=== PATIENT | male | born 1955 | race Two or more races ===

== ENCOUNTER 2020-03-11 06:36 | Day surgery (SDC) | payer OTHER ==
[2020-03-11] VITALS (7 sets, daily range): BP systolic 114–141; BP diastolic 72–82
[~2020-03-11] VITALS: Ht 167.6 cm; Wt 75.3 kg
[~2020-03-11 06:36] MED LIST: ASPIRIN81 MG ORAL; ATENOLOL25 MG ORAL; LIPITOR40 MG ORAL; LOSARTAN POTASS25 MG ORAL; ZETIA10 MG ORAL
--- NOTE | 2020-03-11 07:29 | Short Stay Surgery H&P ---
History of Present Illness History of Present Illness Chief Complaint Patient is being evaluated for colonoscopy screening. ELHAM Kyle is a 64 year old male who was admitted on for Preventive -Colon Screening Patient History Allergies: Coded Allergies: No Known Allergies (Unverified , 03/11/20) PAST MEDICAL HISTORY: (1) History of coronary artery disease (2) Hyperlipidemia (3) History of coronary artery bypass surgery Medication History Scheduled Aspirin* (Aspirin*), 81 MG ORAL DAILY, (Reported) Atenolol* (Tenormin*), 25 MG ORAL DAILY, (Reported) Atorvastatin Calcium* (Lipitor*), 40 MG ORAL BEDTIME, (Reported) Ezetimibe (Zetia*), 10 MG ORAL BEDTIME, (Reported) Losartan Potassium* (Losartan Potassium*), 25 MG ORAL DAILY, (Reported) Review of Systems Cardiovascular: Reports: CAD - stable Respiratory: Reports: no symptoms Skeletal: Reports: no symptoms Gastrointestinal: Reports: no symptoms Genitourinary: Reports: no symptoms Neurologic: Reports: no symptoms Endocrine: Reports: no symptoms Hematologic: Reports: no symptoms Physical Exam Vital Signs Last Vital Signs Date Time Temp Pulse Resp B/P (MAP) Pulse Ox O2 Delivery O2 Flow Rate FiO2 03/11/20 07:09 97.5 66 18 133/78 98 Room Air Skin: normal HENT: normal Heart: normal Lungs: normal Abdomen: normal Extremities: normal Genitourinary: normal Plan Plan of Care Total colonoscopy and possible polypectomy Preop Interventions None Summary of Findings See the reports Attestation Are the patient's medical conditions optimized for surgery? Attestation Response: yes Guero Ochoa MD Mar 11, 2020 07:29
[2020-03-11] MEDS ORDERED: fentaNYL 100 mcg/2 mL IV PRN (07:30)
[2020-03-11] MEDS ORDERED: Atropine Inj 1mg/10ml Syr IVP PRN (07:30)
[2020-03-11] MEDS ORDERED: DiphenhydrAMINE 50mg/ml Inj IVP PRN (07:30)
[2020-03-11] MEDS ORDERED: LR 1000ml 1,000 ML IVLG SCH (07:30)
[2020-03-11] MEDS ORDERED: Midazolam 2mg/2ml Inj IVP PRN (07:30)
--- NOTE | 2020-03-11 07:30 | Pre-Procedure Note/Attestation ---
Pre-Procedure Note/Attestation Complete Prior to Procedure Planned Procedure: left Procedure Narrative: Examination of the colon via endoscopy for screening Indications for Procedure Pre-Operative Diagnosis: R/O colon CA/polyps Attestation I attest that I discussed the nature of the procedure; its benefits; risks and complications; and alternatives (and the risks and benefits of such alte rnatives), prior to the procedure, with the patient (or the patient's legal sales representative [employer]). I attest that, if there was a reasonable possibility of needing a blood transfusion, the patient (or the patient's legal sales representative [employer]) was given the [facility] standardized written summary, pursuant to the Justin Dina Blood Safety Act ([place] Health and Safety Code # 1645, as amended). I attest that I re-evaluated the patient just prior to the surgery and that there has been no change in the patient's H&P, except as documented below: Guero Ochoa MD Mar 11, 2020 07:30
--- NOTE | 2020-03-11 07:31 | Discharge Instructions ---
Discharge Instructions Discharge Instructions Follow up with: Follow up with doctor in office in a few weeks For Congestive Heart Failure Reminder Report to your physician any weight gain of 5 pounds or more in one week. Guero Ochoa MD Mar 11, 2020 07:31
--- NOTE | 2020-03-11 07:33 | Anethesia Preoperative Eval ---
Anesthesia Pre-op PMH/ROS General Date of Evaluation: Mar 11, 2020 Time of Evaluation: 07:32 Anesthesiologist: natalia ASA Score: ASA 3 Mallampati Score Class I : Soft palate, uvula, fauces, pillars visible Class II: Soft palate, uvula, fauces visible Class III: Soft palate, base of uvula visible Class IV: Only hard plate visible Mallampati Classification: Class II Surgeon: beverley Diagnosis: colon screening Surgical Procedure: colonoscopy Anesthesia History: none Social History: smoking - nonsmoker Family History: no anesthesia problems Allergies: Coded Allergies: No Known Allergies (Unverified , 03/11/20) Medications: see eMAR Patient NPO?: Yes Past Medical History Cardiovascular: Reports: HTN, CAD PSxH Narrative: cabg Anesthesia Pre-op Phys. Exam Physician Exam Last Vital Signs Date Time Temp Pulse Resp B/P (MAP) Pulse Ox O2 Delivery O2 Flow Rate FiO2 03/11/20 07:09 97.5 66 18 133/78 98 Room Air Constitutional: NAD Neurologic: CN 2-12 intact Cardiovascular: RRR Respiratory: CTA Gastrointestinal: S/NT/ND Airway Exam Mallampati Score: Class II MO: limited Neck: flexible TMD: 2fb ROM: limited Anesthesia Pre-op A/P Labs Microbiology Date/Time Source Procedure Growth Status 03/11/20 06:50 Nasopharynx SARS-CoV-2 RdRp Gene Assay - Final Complete Risk Assessment & Plan Assessment: asa4 Plan: mac Status Change Before Surgery: No Pre-Antibiotics Drug: Sera Paul MD Mar 11, 2020 07:33
[2020-03-11] MEDS ORDERED: Lidocaine 1% MPF 10mg/ml 5ml ONE (07:45)
[2020-03-11] MEDS ORDERED: LR 1000ml ONE (07:45)
--- NOTE | 2020-03-11 08:33 | Endoscopy Procedure Note ---
Endoscopy Procedure Note General Indication for Procedure: screening colon Procedures Performed: colonoscopy - Minimal internal hemorrhoids and 3mm flat hyperplastic polyp found above ileocecal valve/proximal asceding colon removed totally by cold biopsy forceps; otherwise normal colon. Specimen: yes Pt Tolerated Procedure Well: Yes Estimated Blood Loss: none Anesthesia Anesthesiologist: Dr. Juárez Anesthesia: moderate sedation Inserted Devices Implant(s) used?: No Quality Quality of Bowel Preparation: Excellent Did scope reach the cecum?: Yes Was there any complications?: No GI Core Measures 50 yrs or older w/o bx or poly: Yes 10yrs. F/U recommended: Yes <3yrs. since last colonoscopy: No Med reason:<3 yrs.: System Reason:<3 yrs.: Guero Ochoa MD Mar 11, 2020 08:33
--- NOTE | 2020-03-11 09:15 | Operative Note - Dictated ---
DATE OF OPERATION: 03/11/2020 SURGEON: Guero Ochoa MD. PROCEDURE: Total colonoscopy with polypectomy. PREOPERATIVE DIAGNOSIS: Screening colonoscopy. POSTOPERATIVE DIAGNOSES: 1. Minimal internal hemorrhoids. 2. A 3 mm flat hyperplastic polyp found above the ileocecal valve and the proximal ascending colon, removed with cold biopsy totally looked benign, otherwise complete normal total colonoscopy. MEDICATION USED: Per Dr. Gaona, anesthesiologist. INSTRUMENT: GIF Olympus video colonoscope. DESCRIPTION OF PROCEDURE: The patient after arriving in the endoscopy unit, was told about risks and benefits of the procedure, which he accepted signed informed consent. He was then put on the left lateral decubitus position. After adequate IV sedation, the scope was gently passed through the anal area which revealed evidence of minimal internal hemorrhoids. Otherwise, the rectum was totally normal. The retroflexion maneuver was also applied here. At this time, the scope was gradually passed through the rectosigmoid and introduced into descending colon reaching to the splenic flexure. From there, it was guided into the transverse colon and hepatic flexure and finally entered into the right colon all the way to the ileocecal valve. Incidentally, there was evidence of a 3 mm flat hyperplastic polypoid lesion over the ileocecal valve in the proximal ascending colon which looked quite benign and it was grabbed with cold biopsy forceps and totally removed in few sessions. The site of the polypectomy did not reveal any evidence of bleeding and looked clear. At this time, within 6 minutes gradually the scope was pulled out and further evaluation of colon did not reveal any other pathology. Colon cleanup was adequate and excellent. The patient tolerated the procedure well and left the endoscopy room in a good condition. Guero Ochoa M.D. DR: DEBORAH JOB#: [id number] CC:
--- NOTE | 2020-03-11 09:20 | Immediate Post-Op Evaluation ---
Immediate Post-Op Evalulation Immediate Post-Op Evalulation Procedure: colonoscopy w/bx Date of Evaluation: Mar 11, 2020 Time of Evaluation: 08:44 IV Fluids: 350ml lr Blood Products: none Estimated Blood Loss: negligible Blood Pressure Systolic: 123 Blood Pressure Diastolic: 82 Pulse Rate: 64 Respiratory Rate: 18 O2 Sat by Pulse Oximetry: 100 Temperature (Fahrenheit): 98.4 Pain Score (1-10): 0 Nausea: No Vomiting: No Complications none Patient Status: awake, reacts, patent Hydration Status: adequate Drug: Sera Paul MD Mar 11, 2020 09:20
--- NOTE | 2020-03-11 09:21 | 48 Hour Post Anesthesia Eval ---
Post Anesthesia Evaluation Procedure: colonoscopy w/bx Date of Evaluation: Mar 11, 2020 Time of Evaluation: 08:46 Blood Pressure Systolic: 114 0: 74 Pulse Rate: 61 Respiratory Rate: 18 Temperature (Fahrenheit): 98.4 O2 Sat by Pulse Oximetry: 100 Airway: patent Nausea: No Vomiting: No Pain Intensity: 0 Hydration Status: adequate Cardiopulmonary Status: stable Mental Status/LOC: patient returned to baseline Post-Anesthesia Complications: none Follow-up care needed: N/A Sera Juárez MD Mar 11, 2020 09:21
== END 2020-03-11 09:40 | disposition home or self-care (01) ==
LOC: GAS 06:36
DX: Z12.11 Encounter for screening for malignant neoplasm of colon (principal); K64.8 Other hemorrhoids; D12.2 Benign neoplasm of ascending colon; K63.5 Polyp of colon; E78.5 Hyperlipidemia, unspecified; Z95.1 Presence of aortocoronary bypass graft; Z79.82 Long term (current) use of aspirin; I25.10 Atherosclerotic heart disease of native coronary artery without angina pectoris; I11.9 Hypertensive heart disease without heart failure
CPT/HCPCS: 45380; 94003; J2704; J7120; U0002; 94150